=== PATIENT | female | born 1960 | race Caucasian/White ===

== ENCOUNTER → 2023-12-22 15:43 | Outpatient (REF) | payer OTHER, SELFPAY | LOC: DHCBC HW 15:43 | PROVIDERS: ATTENDING PHYSICIAN Internal Medicine Cardiovascular Disease; FAMILY PHYSICIAN Family Medicine | DX: R01.1 Cardiac murmur, unspecified (principal); R94.31 Abnormal electrocardiogram [ECG] [EKG]; I44.7 Left bundle-branch block, unspecified; R06.02 Shortness of breath | CPT/HCPCS: 93306 ==

== ENCOUNTER → 2024-01-01 11:06 | Outpatient (REF) | payer OTHER, SELFPAY | LOC: DHCBC/DCA 11:06 | PROVIDERS: ATTENDING PHYSICIAN Internal Medicine Cardiovascular Disease; FAMILY PHYSICIAN Family Medicine | DX: R01.1 Cardiac murmur, unspecified (principal); R94.31 Abnormal electrocardiogram [ECG] [EKG]; I44.7 Left bundle-branch block, unspecified; R06.02 Shortness of breath | CPT/HCPCS: 78452; 93017; A9500; J2785 ==